=== PATIENT | female | born 1980 | race Caucasian/White ===

== ENCOUNTER 2016-10-14 13:00 | Emergency (ER) | payer OTHER ==
[~2016-10-14] VITALS: Ht 165.1 cm; Wt 84.1 kg
[~2016-10-14 13:00] MED LIST: OMEPRAZOLE20 MG PO
[2016-10-14 13:03] VITALS: BP 121/65
[2016-10-14 13:24] LABS: ADD MIUA? YES; BILIRUBIN NEGATIVE; BLOOD NEGATIVE; COLOR YELLOW ((YELLOW)); GLUCOSE (STRIP) NEGATIVE; KETONES NEGATIVE; LEUKOCYTES NEGATIVE; NITRITE NEGATIVE; PROTEIN (STRIP) TRACE
[2016-10-14 13:39] LABS: HEMATOCRIT 32.3 % (36.0-46.0); MCHC 30.3 G/DL (30.0-36.0); MCV 72.6 FL (83-99); MEAN PLAT.VOLUME 11.2 uM^3 (9.5-12.4); PLATELET COUNT 279 K/uL (156-360); RBC DIS.WIDTH-SD 38.8 % (39-53); RED BLOOD COUNT 4.45 M/uL (3.80-5.20); WHITE BLOOD COUNT 5.8 K/uL (4.1-10.2)
[2016-10-14 13:47] LABS: CHLORIDE 109 mEq/L (99-109); POTASSIUM 3.7 mEq/L (3.7-5.4); SODIUM 140 mEq/L (136-147)
[2016-10-14 13:49] LABS: GLUCOSE 124 mg/dL (70-99)
[2016-10-14 13:50] LABS: ANION GAP 10 MEQ/L (2-14)
[2016-10-14 13:51] LABS: TOTAL BILIRUBIN 0.4 mg/dL (0.0-1.0)
[2016-10-14 13:53] LABS: ALKALINE PHOSPHATASE 51 IU/L (3-129); GFR ESTIMATE (CALCULATED) > 59 mL/min/
[2016-10-14 13:54] LABS: UREA NITROGEN (BUN) 12 mg/dL (9-23)
[2016-10-14 13:57] LABS: BACTERIA 3+; CASTS NONE SEEN /LPF; EPITHELIAL CELLS 2+; MUCUS NONE SEEN; RED BLOOD CELLS 0-5 /HPF (0-5); UCUL ADDED? NO; WHITE BLOOD CELLS 0-5 /HPF (0-5)
[2016-10-14 13:58] LABS: CRYSTALS NONE SEEN
[2016-10-14 14:02] LABS: QUANTITATIVE HCG < 4.0 MIU/ML
== END 2016-10-14 14:23 | disposition left against medical advice (07) ==
LOC: EME 13:00 → RME 13:00
DX: R10.9 Unspecified abdominal pain (principal); R11.0 Nausea; Z53.21 Procedure and treatment not carried out due to patient leaving prior to being seen by health care provider
CPT/HCPCS: 80053; 81003; 84702; 85027

== ENCOUNTER 2017-01-05 06:55 | Emergency (ER) | payer OTHER ==
[~2017-01-05] VITALS: Ht 165.1 cm; Wt 83.9 kg
[2017-01-05 08:05] LABS: CHLORIDE 109 mEq/L (99-109); POTASSIUM 3.8 mEq/L (3.7-5.4); SODIUM 139 mEq/L (136-147)
[2017-01-05 08:06] LABS: HEMATOCRIT 30.5 % (36.0-46.0); MCH 21.6 PG (29.0-34.0); MCHC 29.5 G/DL (30.0-36.0); MCV 73.3 FL (83-99); MEAN PLAT.VOLUME 11.1 uM^3 (9.5-12.4); PLATELET COUNT 263 K/uL (156-360); RBC DIS.WIDTH-CV 14.7 % (11.8-14.6); RBC DIS.WIDTH-SD 39.3 % (39-53); RED BLOOD COUNT 4.16 M/uL (3.80-5.20); WHITE BLOOD COUNT 4.2 K/uL (4.1-10.2)
[2017-01-05 08:07] LABS: GLUCOSE 100 mg/dL (70-99)
[2017-01-05 08:09] LABS: ANION GAP 8 MEQ/L (2-14); TOTAL BILIRUBIN 0.4 mg/dL (0.0-1.0)
[2017-01-05 08:11] LABS: ALKALINE PHOSPHATASE 47 IU/L (3-129); GFR ESTIMATE (CALCULATED) > 59 mL/min/
[2017-01-05 08:12] LABS: UREA NITROGEN (BUN) 9 mg/dL (9-23)
[2017-01-05 08:14] LABS: LIPASE 13 U/L (1.0-51.0)
[2017-01-05 08:20] LABS: QUANTITATIVE HCG < 4.0 MIU/ML
[2017-01-05 08:56] LABS: ADD MIUA? YES; BILIRUBIN NEGATIVE; BLOOD NEGATIVE; COLOR YELLOW ((YELLOW)); GLUCOSE (STRIP) NEGATIVE; KETONES NEGATIVE; LEUKOCYTES NEGATIVE; NITRITE NEGATIVE; PROTEIN (STRIP) NEGATIVE; SPECIFIC GRAVITY 1.013 (1.000-1.030); UROBILINOGEN 0.2 MG/DL (0.2-1.0)
[2017-01-05 08:59] LABS: BACTERIA NONE SEEN /HPF; EPITHELIAL CELLS 1+ /HPF; MUCUS TRACE /LPF; RED BLOOD CELLS 0-5 /HPF (0-5); UCUL ADDED? NO; WHITE BLOOD CELLS 0-5 /HPF (0-5)
[2017-01-05] MEDS ORDERED: ZOFRAN ODT4 MG PO (09:45)
[2017-01-05] MEDS ORDERED: MOTRIN800 MG PO (09:45)
[2017-01-05 10:00] VITALS: BP 148/78
== END 2017-01-05 10:02 | disposition home or self-care (01) ==
LOC: EME 06:55
PROVIDERS: Nurse Practitioner Family
DX: K52.9 Noninfective gastroenteritis and colitis, unspecified (principal); D64.9 Anemia, unspecified; Z87.891 Personal history of nicotine dependence; Z88.0 Allergy status to penicillin; Z98.84 Bariatric surgery status
CPT/HCPCS: 74020; 80053; 81003; 83690; 84702; 84703; 85027; 99281; 99284; J7030